=== PATIENT | male | born 1960 | race Two or more races ===

== ENCOUNTER 2017-01-03 14:09 | Emergency (ER) | payer OTHER ==
--- NOTE | ~2017-01-03 | CR63 ---
[facility] A Service of [facility] & [facility] RADIOLOGY TEXT RESULTS PATIENT: NGUYEN GAMBINO LOCATION: CFTX : 64 UNIT #: [id number] AGE: [address]: Scotty Diana SEX: M ORDER DR: [id number] [facility] [address] [place], [place] [address] [id number] MR#: [id number] #: [id number] NAME: NGUYEN GAMBINO : 1960 SEX: M STUDY DATE/TIME: 01/03/2017 12:55 UNIT: [facility] ROOM: STUDY DESCRIPTION: CR Chest 2 View Attending Physician: Scotty Diana Ordering Physician: Ed Doctor [id number] [facility] Primary Care Physician: Clarence Miller M.D. MEDICAL IMAGING REPORT This report is preliminary unless electronic signature is present EXAM Two view chest x-ray, INDICATIONS Chest pain and cough for 20 days. No trauma. FINDINGS 2 views of the chest were obtained. No comparison. Cardiac and mediastinal contours are normal. Lung volumes are low. There is some mild atelectasis in the bases. Lungs otherwise are clear and there is no pneumothorax. IMPRESSION Low-volume inspiration with some mild bibasilar atelectasis. Dictated by... Eliot Galicia Jr., M.D. THIS IS AN ELECTRONICALLY VERIFIED REPORT Eliot Galicia Jr., M.D. at 01/03/2017 3:55 PM MYA/tabitha TD: 01/03/2017 14:26 JOB #: [id number] MEDICAL IMAGING REPORT Page 1 of 1 COPY
[2017-01-03 13:26] LABS: INFLUENZA A NEG (NEG); INFLUENZA B NEG (NEG)
[~2017-01-03 14:09] MED LIST: FLEXERIL10 M1 PO; NAPROSYN500 MG PO
== END 2017-01-03 15:00 | disposition home or self-care (01) ==
LOC: CFTX 14:09
PROVIDERS: Nurse Practitioner
DX: J06.9 Acute upper respiratory infection, unspecified (principal); F17.210 Nicotine dependence, cigarettes, uncomplicated
CPT/HCPCS: 71020; 87651; 87804; 94640; 99283

== ENCOUNTER 2017-05-14 10:02 | Emergency (ER) | payer OTHER ==
[~2017-05-14] VITALS: Ht 188 cm; Wt 133.8 kg
== END 2017-05-14 11:56 | disposition home or self-care (01) ==
LOC: CED 10:02 → CFTX 10:02
DX: H61.22 Impacted cerumen, left ear (principal); F17.210 Nicotine dependence, cigarettes, uncomplicated
CPT/HCPCS: 99282